=== PATIENT | male | born 1995 | race Caucasian/White ===

== ENCOUNTER 2018-08-27 22:24 | Emergency (ER) | payer BC, OTHER ==
[2018-08-28] MEDS ORDERED: Ondansetron ODT TAB* 4 MG SL ONE (01:14)
[2018-08-28] MEDS ORDERED: Ibuprofen TAB* 600 MG PO ONE (01:14)
--- NOTE | 2018-08-28 01:25 | ED ---
HPI Chest Pain - HPI Summary HPI Summary: Patient is a 23-year-old otherwise healthy male presenting to the ED with a one- day history of R sided chest wall pain radiating to the RLQ and Left lateral chest wall pain radiating to the mid abdomen. Patient states he has also been experiencing diarrhea, however this is very normal for him. He has never been diagnosed with IBS, but believes he may have this. Symptoms began acutely onset , without shortness of breath. He states he does have a history of anxiety, but states this feels different than his previous episodes. He appears well on arrival. Patient is afebrile [facility] stable. Denies any worsening pain with palpation to the anterior chest wall. Denies any worsening pain with positioning. He denies any photophobia, neck pain, headache, sinus pressure or congestion. Endorses mild nausea, but denies any vomiting. - History of Current Complaint Chief Complaint: EDChestWallPain Time Seen by Provider: 08/28/18 00:55 Hx Obtained From: Patient Onset/Duration: Started Hours Ago Timing: Constant Initial Severity: Moderate Current Severity: Moderate Pain Intensity: 7 Pain Scale Used: 0-10 Numeric Chest Pain Location: Right Anterior, Left Lateral Chest Pain Radiates: Yes Chest Pain Radiates To:: Other - mid lower abdomen Character: Burning, Dull/Aching, Sharp/Stabbing Aggravating Factor(s): Nothing Alleviating Factor(s): Nothing Associated Signs and Symptoms: Positive: Negative - Risk Factors Pulmonary Embolism Risk Factors: Negative TAD Risk Factors: Negative - Allergy/Home Medications Allergies/Adverse Reactions: Allergies Allergy/AdvReac Type Severity Reaction Status Date / Time No Known Allergies Allergy Verified 08/27/18 22:28 PMH/Surg Hx/FS Hx/Imm Hx Previously Healthy: Yes Endocrine/Hematology History: Denies: Hx Diabetes Cardiovascular History: Denies: Hx Hypertension, Hx Pacemaker/ICD History: Denies: Hx Renal Disease Sensory History: Denies: Hx Hearing Aid Psychiatric History: Denies: Hx Panic Disorder - Immunization History Hx Pertussis Vaccination: No Immunizations Up to Date: Yes Infectious Disease History: No Infectious Disease History: Denies: Traveled Outside the [place] in Last 30 Days - Family History Known Family History: Negative: Diabetes - Social History Occupation: Unemployed Lives: With Family Alcohol Use: Occasionally Hx Substance Use: No Substance Use Type: Reports: None Hx Tobacco Use: No Smoking Status (MU): Never Smoked Tobacco Review of Systems Constitutional: Negative Negative: Fever, Chills, Fatigue, Skin Diaphoresis Negative: Epistaxis, Dental Pain, Sore Throat, Ear Ache Positive: Chest Pain Negative: Shortness Of Breath, Cough Positive: Nausea. Negative: Abdominal Pain, Vomiting, Diarrhea Genitourinary: Negative Positive: no symptoms reported, see HPI Negative: Arthralgia, Myalgia Skin: Negative Positive: Anxious All Other Systems Reviewed And Are Negative: Yes Physical Exam Triage Information Reviewed: Yes Vital Signs On Initial Exam: Initial Vitals Temp Pulse Resp BP Pulse Ox 98.2 F 97 16 140/74 99 08/27/18 22:27 08/27/18 22:27 08/27/18 22:27 08/27/18 22:27 08/27/18 22:27 Vital Signs Reviewed: Yes Appearance: Positive: Well-Appearing, Well-Nourished Skin: Positive: Warm, Skin Color Reflects Adequate Perfusion Head/Face: Positive: Normal Head/Face Inspection Eyes: Positive: EOMI, RAJ, Conjunctiva Clear Neck: Positive: Supple, No Lymphadenopathy Respiratory/Lung Sounds: Positive: Clear to Auscultation, Breath Sounds Present Cardiovascular: Positive: RRR, Pulses are Symmetrical in both Upper and Lower Extremities Musculoskeletal: Positive: Strength/ROM Intact Neurological: Positive: Speech Normal Psychiatric: Positive: Normal, Affect/Mood Appropriate AVPU Assessment: Alert Diagnostics - Vital Signs Vital Signs Temp Pulse Resp BP Pulse Ox 08/28/18 01:00 78 19 96 08/28/18 00:53 80 20 96 08/28/18 00:52 78 20 132/74 96 08/28/18 00:29 100.2 F 64 16 126/66 97 08/27/18 22:27 98.2 F 97 16 140/74 99 - Laboratory Result Diagrams: 08/28/18 01:19 08/28/18 01:19 Lab Statement: Any lab studies that have been ordered have been reviewed, and results considered in the medical decision making process. Chest Pain Course/Dx - Course Course Of Treatment: Patient's evaluated for right sided stabbing chest pain which is intermittent in nature, acute onset this morning. He is also endorsing some left-sided lateral chest pain which radiates to the mid lower abdomen. He also has endorsing some diarrhea, but states is his baseline. Labs obtained which are all WNL. Including a troponin which was 0.00. Chest x- ray obtained which shows no acute cardiopulmonary disease. EKG shows normal sinus rhythm. Vital signs are stable and patient remains afebrile. One reading shows 100.2, however on recheck, he is 98.2. He denies any fevers, sweats, chills. He is given ibuprofen at home with good relief of his abdominal symptoms, however continues to state he has slight right-sided chest pain, however this has improved greatly since he has had his ibuprofen. He is also given Zofran and no longer complains of nausea. He denies any personal history of cardiac issues or family history of cardiac issues. I believe he is a safe discharge at this time and will follow up with gastroenterology for his ongoing symptoms of his diarrhea over the course of several years. He understands to return to the ED if he develops any worsening chest pain or any additional symptoms. He understands these return precautions. - Diagnoses Provider Diagnoses: Atypical chest pain, Diarrhea Discharge - Sign-Out/Discharge Documenting (check all that apply): Patient Departure - Discharge Plan Condition: Stable Disposition: HOME Prescriptions: Ondansetron ODT TAB* [Zofran 4 MG Odt TAB*] 4 mg PO Q6H PRN #12 tab.odt MDD 4 PRN Reason: Nausea Referrals: Maury Rawls DO [Doctor of Osteopathy] - Eusebio Donaldson DO [Primary Care Provider] - Additional Instructions: Please follow up with gastroenterology regarding your abdominal pain zofran has been prescribed to you as discussed, if you develop any worsening symptoms, return to the ED - Billing Disposition and Condition Condition: STABLE Disposition: Home
[2018-08-28 01:27] LABS: ABS Basophils 0 10^3/ul (0-0.2); ABS Eosinophils 0.1 10^3/ul (0-0.6); ABS Lymphocytes 0.7 10^3/ul (1.0-4.8); ABS Monocytes 0.6 10^3/ul (0-0.8); ABS Neutrophils 7.3 10^3/ul (1.5-7.7); ABS Nucleated RBC 0 10^3/ul; Eosinophil % 0.8 %; Hematocrit 49 % (42-52); Hemoglobin 16.4 g/dl (14.0-18.0); Mean Corpuscular HGB Conc 34 g/dl (31-36); Mean Corpuscular Hemoglobin 30 pg (27-31); Mean Corpuscular Volume 90 fL (80-94); Mean Platelet Volume 7.1 fL (7.4-10.4); Nucleated Red Blood Cells % 0; Platelet Count 180 10^3/ul (150-450); Red Blood Count 5.43 10^6/ul (4.00-5.40); Red Cell Distribution Width 13 % (10.5-15); White Blood Count 8.6 10^3/ul (3.5-10.8)
[2018-08-28 01:45] LABS: EGFR Non-African American 89.2 (>60)
[2018-08-28 02:18] VITALS: BP 119/69
== END 2018-08-28 02:25 | disposition home or self-care (01) ==
LOC: ED 22:24
DX: R07.89 Other chest pain (principal); R19.7 Diarrhea, unspecified; R11.0 Nausea
CPT/HCPCS: 36415; 71045; 80053; 83605; 83690; 84484; 85025; 93005; 99283; A9270-GY